=== PATIENT | male | born 1975 | race Caucasian/White ===

== ENCOUNTER 2018-02-01 13:26 | Observation (INO) | payer BC ==
--- NOTE | 2018-02-01 13:33 | EDPHY ---
H & P Time Seen by Provider: 02/01/18 13:27 Constitutional: Initial Vital Signs Temperature (C) 36.8 C 02/01/18 14:01 Heart Rate 85 02/01/18 14:01 Respiratory Rate 18 02/01/18 14:01 Blood Pressure 153/83 H 02/01/18 14:01 O2 Sat (%) 100 02/01/18 14:01 O2 Delivery Mode Room Air Allergies/Adverse Reactions: No Known Allergies Allergy (Unverified 02/01/18 14:02) Home Medications: Medication Instructions Recorded Albuterol [Proventil Inhaler HFA 1 - 2 puffs IH Q4H PRN 02/01/18 (*)] Budesonide [Pulmicort 0.5MG/2Ml 0.5 mg NASAL DAILY PRN 02/01/18 Neb] Warfarin Sodium [Coumadin 5MG (*)] 7.5 mg PO HS 02/01/18 Medical Decision Making - Diagnostics Imaging Results: Imaging Impressions Chest X-Ray 02/01/18 13:37 Impression: Prior aortic valve replacement; negative for acute cardiopulmonary abnormality.. Imaging: Discussed imaging studies w/ call center dispatcher Radiologist, I viewed and interpreted images myself ED Course/Re-evaluation: CHIEF COMPLAINT: Heart palpitations HISTORY OF PRESENT ILLNESS: The patient is an anticoagulated (Warfarin) 43 y/o male with a history of an aortic valve replacement and ventricular hypertrophy arriving via EMS complaining of chest palpitations today. On Monday, 3 days ago, he arrived in [place] from [place]. Today he went for a short run and felt okay immediately after it. Several hours after the run he developed heart palpitations associated with feeling dizzy, faint, and having numb and tingling extremities. He denies chest pain or shortness of breath at this time. When EMS arrived on scene, the patient had a respiration rate of 34. This was able to be decreased after preforming breathing exercises. While en route to the hospital the patient did not recieve fluids because he was mildly hypertensive. He is still feeling numb in his limbs. On Monday, 6 days ago the patient's INR was 2.4. Denies headache, abdominal pain, urinary or bowel complaints, paresthesias, fever. REVIEW OF SYSTEMS: A 10 point review of systems was performed and is negative with the exception of the elements mentioned in the history of present illness. PHYSICAL EXAM: HR, BP, O2 Sat, RR. Temp noted General Appearance: Alert, nervous, well hydrated, appropriate, and non-toxic appearing. Head: Atraumatic without scalp tenderness or obvious injury Eyes: Pupils equal, round, reactive to light and accommodation, EOMI, no trauma , no injection. Ears: Clear bilaterally, no perforation, normal landmarks Nose: Atraumatic, no rhinorrhea, clear. Throat: There is no erythema or exudates, no lesions, normal tonsils, mucus membranes moist. Neck: Supple, 2+ carotid upstroke, nontender, no lymphadenopathy. Respiratory: No retractions, no distress, no wheezes, and no accessory muscle use. Lungs are clear to auscultation bilaterally. Cardiovascular: Mechanical aortic valve with mechanical click. Tachycardic, no murmurs, rubs, or gallops. Bilateral carotid, radial, dorsalis pedis, and posterior tibial pulses intact. Good capillary refill all extremities. Gastrointestinal: Abdomen is soft, nontender, non-distended, no masses, no rebound, no guarding, no peritoneal signs. Musculoskeletal: Normal active ROM of all extremities, atraumatic. Neurological: Alert, appropriate, and interactive. The patient has normal DTRs and non-focal cranial nerves, motor, sensory, and cerebellar exam. Skin: No rashes, good turgor, no nodules on palpation. Past medical history: Aortic aneurysm (2002), left ventricular hypertrophy Past surgical history: Aortic valve replacement x 2 ([address] [facility]) Family history: Aortic defect Social history: Lives in [place], employed DIAGNOSTICS/PROCEDURES/CRITICAL CARE TIME: EKG: The 12 lead EKG was interpreted by myself as sinus rhythm with a rate of 87 , left atrial abnormality, nonspecific intraventricular conduction delay, left ventricular hypertrophy. See hard copy and/or "tracemaster" electronic copy for interpretation. Chest X-ray: Negative for acute findings. Echocardiogram: DIFFERENTIAL DIAGNOSIS: The differential diagnosis for the patient's chest palpitations included but was not limited to myocardial ischemia, pulmonary embolus, chest wall pain, pleural inflammation, and pulmonary infectious causes. MEDICAL DECISION MAKING: The patient is an anticoagulated (Warfarin) 43 y/o male with a history of an aortic valve replacement and ventricular hypertrophy arriving via EMS presenting with chest palpitations today. On exam the patient is tachycardic and has a mechanical aortic valve with a mechanical click. EKG, chest x-ray and labs ordered; 1L IV NS administered. 1326: I met EMS upon arrival 1333: The 12 lead EKG was interpreted by myself as sinus rhythm with a rate of 87, left atrial abnormality, nonspecific intraventricular conduction delay, left ventricular hypertrophy. 1335: Consulted with Dr. Valencia, [facility], regarding this patient. Echocardiogram ordered. 1338: Patient's EKG shows concern for inferior ST depression or ischemia. However, based on patient's history of prior valve replacements this could be normal for him. We will try to find an old EKG from [facility] for comparison. 1403: Patient's INR is 2.12 (this is subtherapeutic), he is hyperventilating and has a small anion gap with low magnesium. 2mg IV Magnesium Sulfate administered. Patient's chest x-ray is normal per radiologist. 1433: Patient's troponin is 0.00. Patient's labs do not explain his near syncope. 1438: Reassessed patient and discussed laboratory and imaging findings. The patient is feeling worse and believes his heart rate is more rapid than normal. He is also still feeling lightheaded and dizzy. The patient has received fluids and is urinating without difficulty. Due to the worsening symptoms he will need to admitted for further evaluation. 1455: Consulted with Dr. Valencia, he agrees to follow this patient during his admission. The patient has severe aortic stenosis with his aortic valve per the echocardiogram. 1515: Consulted with hospitalist service, Dr. Tunrer accepts admission of this patient. Dr. Turner would like to adjust patient's anticoagulation once he is transferred to the floor. 1518: Reassessed patient and discussed updated plan for admission. 1600: Per Dr. Miramontes, [facility] in [place], the patient had a recent EKG and Echo which revealed a normal aortic valve and ejection fracture. On 02/17/17, there was an aortic valve prosthetic mean gradient of 40 and an aortic valve prosthetic peak gradient of 72. Dr Miramontes's office phone number is [phone]. - Data Points Laboratory Results: Laboratory Results 02/01/18 13:34 02/01/18 13:34 02/01/18 02/01/18 02/01/18 14:23 13:34 13:34 WBC RBC Hgb Hct MCV MCH MCHC RDW Plt Count MPV Neut % (Auto) Lymph % (Auto) [place] % (Auto) Eos % (Auto) Baso % (Auto) Nucleat RBC Rel Count Absolute Neuts (auto) Absolute Lymphs (auto) Absolute Monos (auto) Absolute Eos (auto) Absolute Basos (auto) Absolute Nucleated RBC Immature Gran % Immature Gran # PT 23.8 SEC H SEC (12.0-15.0) INR 2.12 H (0.83-1.16) APTT 31.9 SEC SEC (23.0-38.0) Sodium 137 mEq/L mEq/L (135-145) Potassium 3.3 mEq/L mEq/L (3.3-5.0) Chloride 99 mEq/L mEq/L (97-110) Carbon Dioxide 17 mEq/l L mEq/l (22-31) Anion Gap 21 mEq/L H mEq/L (8-16) BUN 11 mg/dL mg/dL (7-23) Creatinine 1.1 mg/dL mg/dL (0.7-1.3) Estimated GFR > 60 Glucose 112 mg/dL H mg/dL (70-100) Calcium 10.0 mg/dL mg/dL (8.5-10.4) Magnesium 1.5 mg/dL L mg/dL (1.6-2.3) POC Troponin I 0.00 ng/mL ng/mL (0.00-0.08) NT-Pro-B Natriuret Pep 27 pg/mL pg/mL (0-125) 02/01/18 13:34 WBC 10.30 10^3/uL H 10^3/uL (3.80-9.50) RBC 5.93 10^6/uL 10^6/uL (4.40-6.38) Hgb 17.3 g/dL g/dL (13.7-17.5) Hct 49.1 % % (40.0-51.0) MCV 82.8 fL fL (81.5-99.8) MCH 29.2 pg pg (27.9-34.1) MCHC 35.2 g/dL g/dL (32.4-36.7) RDW 12.6 % % (11.5-15.2) Plt Count 230 10^3/uL 10^3/uL (150-400) MPV 11.2 fL fL (8.7-11.7) Neut % (Auto) 77.2 % H % (39.3-74.2) Lymph % (Auto) 15.2 % % (15.0-45.0) [place] % (Auto) 6.5 % % (4.5-13.0) Eos % (Auto) 0.3 % L % (0.6-7.6) Baso % (Auto) 0.4 % % (0.3-1.7) Nucleat RBC Rel Count 0.0 % % (0.0-0.2) Absolute Neuts (auto) 7.95 10^3/uL H 10^3/uL (1.70-6.50) Absolute Lymphs (auto) 1.57 10^3/uL 10^3/uL (1.00-3.00) Absolute Monos (auto) 0.67 10^3/uL 10^3/uL (0.30-0.80) Absolute Eos (auto) 0.03 10^3/uL 10^3/uL (0.03-0.40) Absolute Basos (auto) 0.04 10^3/uL 10^3/uL (0.02-0.10) Absolute Nucleated RBC 0.00 10^3/uL 10^3/uL (0-0.01) Immature Gran % 0.4 % % (0.0-1.1) Immature Gran # 0.04 10^3/uL 10^3/uL (0.00-0.10) PT INR APTT Sodium Potassium Chloride Carbon Dioxide Anion Gap BUN Creatinine Estimated GFR Glucose Calcium Magnesium POC Troponin I NT-Pro-B Natriuret Pep Medications Given: Discontinued Medications Sodium Chloride (Ns) 1,000 mls @ 0 mls/hr IV EDNOW ONE; Wide Open PRN Reason: Protocol Stop: 02/01/18 13:37 Last Admin: 02/01/18 14:44 Dose: Not Given Magnesium Sulfate (Magnesium Sulf 2 Gm (Premix)) 50 mls @ 50 mls/hr IV EDNOW ONE Stop: 02/01/18 15:03 Last Admin: 02/01/18 14:43 Dose: 50 mls Point of Care Test Results: Chemistry 02/01/18 14:23 POC Troponin I 0.00 ng/mL ng/mL (0.00-0.08) Departure - Departure Disposition: [facility] Inpatient Acute Clinical Impression: Palpitations, Near syncope, Dizzy, Tachycardia, Aortic valve replaced Aortic stenosis Qualifiers: Cardiac valve disease etiology: etiology unspecified Qualified Code(s): I35.0 - Nonrheumatic aortic (valve) stenosis Condition: Fair Report Scribed for: Eamon Perez Report Scribed by: Lachelle Barber Date of Report: 02/01/18 Time of Report: 13:45
--- NOTE | 2018-02-01 13:35 | CPEKG ---
Heart Rate: 87 RR Interval: 690 P-R Interval: 172 QRSD Interval: 114 QT Interval: 380 QTC Interval: 457 P [place]: 69 QRS [place]: 2 T Wave [place]: 10 EKG Severity - ABNORMAL ECG - EKG Impression: SINUS RHYTHM EKG Impression: LEFT ATRIAL ABNORMALITY EKG Impression: NONSPECIFIC INTRAVENTRICULAR CONDUCTION DELAY EKG Impression: LEFT VENTRICULAR HYPERTROPHY Electronically Signed By: Eamon Perez 01-Feb-2018 20:59:04
[2018-02-01] MEDS ORDERED: NS 1,000 ML IV ONE (13:36)
[2018-02-01 13:44] LABS: PLATELET COUNT 230 10^3/uL (150-400)
[2018-02-01 13:51] LABS: INR 2.12 (0.83-1.16); PROTIME(PATIENT) 23.8 SEC (12.0-15.0)
[2018-02-01] MEDS ORDERED: MAGNESIUM SULF 2 GM/WATER 50 ML IV ONE (14:04)
--- NOTE | 2018-02-01 14:40 | ECHO ---
[email or web address] [address] [address] Main: [phone] Fax: Transthoracic Echocardiogram Name: KIMBERLY SPANGLER MR#: [id number] Study Date: 02/01/2018 Study Time: 02:02 PM Date of : 1975 Age: 43 year(s) Height: 177.8 cm (70 in.) Weight: 75.3 kg (166 lb.) BSA: 1.93 m2 Gender: Male Examination: Echo Indication: Chest Pain Image Quality: Adequate Contrast: Requested by: Eamon Perez BP: 162 mmHg/97 mmHg Heart Rate: Rhythm: Indication: Chest Pain Procedure Staff Box Maker: Radha Vega [facility] Reading Physician: Kemal Valencia MD Requesting Provider: Conclusions: Normal size left ventricle. No LV hypertrophy. Normal global systolic LV function. EF is 64 %. No regional wall motion abnormality. The mitral valve is normal in appearance and function. Trivial to mild mitral regurgitation. The aortic valve is a mechanical prosthesis.. No prosthesis regurgitation. The prosthetic aortic valve has a mean gradient of 44 mmhg with a peak velocity of 4.1 m/s. The tricuspid valve is normal in appearance and function. Trivial tricuspid valve regurgitation. The pulmonary artery pressure is normal. Normal size aortic root measuring 3.2 cm. Normal size ascending aorta measuring 2.6 cm. Patient states known LVH and high aortic valve gradients. No previous. Measurements: Chambers Valvular Assessment AV/MV Valvular Assessment TV/PV Normal Normal Normal Name Value Range Name Value Range Name Value Range Ao Sinai (2D): 3.2 cm (1.4 cm-2.6 AV Vmax: 3.87 m/s (1 m/s-1.7 PV Vmax: 0.81 m/s (0.6 m/s-0.9 cm) m/s) m/s) IVSd (2D): 1.4 cm (0.6 cm-1.1 AV maxP mmHg ( - ) PV PGmax: 3 mmHg ( - ) cm) AV meanP mmHg ( - ) LVDd (2D): 4.3 cm (4.2 cm-5.9 LVOT Vmax: 0.86 m/s (0.7 m/s-1.1 cm) m/s) LVDs (2D): 3.0 cm (2.1 cm-4 DALLIN (Vmax): 0.9 cm2 ( - ) cm) DALLIN (VTI): 1.0 cm ( - ) Patient: KIMBERLY SPANGLER Study Date: 02/01/2018 Page 1 of 3 02:02 PM LVPWd (2D): 1.4 cm (0.6 cm-1 MV E Vmax: 0.43 m/s ( - ) cm) MV A Vmax: 0.59 m/s ( - ) LVOTd 2.3 cm 2.3 cm mm MV E/A: 0.73 ( - ) LVEF (BP): 64 % (>=55 %) MV PHT: 0.059 s ( - ) RVDd(2D): 2.9 cm (1.9 cm-3.8 MVA (PHT): 3.7 s ( - ) cmmm) Continued Measurements: Chambers Valvular Assessment AV/MV Valvular Assessment TV/PV Name Value Name Value Name Value LADs: 4.3 cm MV DecTime: 190 m/s CVP (est.): 5 mmHg LADs Lon.3 cm MV E/E' Septal: 5.90 LA Area: 15.8 cm2 MV E/E' Lateral: 4.80 LA Volume: 52 ml LA Volume Index: 26.9 ml/m2 RA Area: 16.7 cm2 Additional Vessels Name Value Ao Ascendin.6 cm Inferior Vena Cava: 1.3 cm Findings: Left Ventricle: Normal size left ventricle. No LV hypertrophy. Normal global systolic LV function. EF is 64 %. No regional wall motion abnormality. Normal diastolic LV function. Right Ventricle: Normal size right ventricle. Normal RV function. Left Atrium: The left atrium is normal in size. Right Atrium: The right atrium is normal in size. Mitral Valve: The mitral valve is normal in appearance and function. Trivial to mild mitral regurgitation. No mitral stenosis is present. Aortic Valve: The aortic valve is a mechanical prosthesis.. No prosthesis regurgitation. The prosthetic aortic valve has a mean gradient of 44 mmhg with a peak velocity of 4.1 m/s. Tricuspid Valve: The tricuspid valve is normal in appearance and function. Trivial tricuspid valve regurgitation. The pulmonary artery pressure is normal. Pulmonic Valve: The pulmonic valve is normal in appearance and function. There is no pulmonic regurgitation seen. Aorta: The aorta is normal. Normal size aortic root measuring 3.2 cm. Normal size ascending aorta measuring 2.6 cm. IVC: The IVC is normal sized. Pericardium: No pericardial effusion. No pleural effusion. Exam Comments: Patient states known LVH and high aortic valve gradients. (No Signature Object) Patient: KIMBERLY SPANGLER Study Date: 02/01/2018 Page 2 of 3 02:02 PM Patient: KIMBERLY SPANGLER Study Date: 02/01/2018 Page 3 of 3 02:02 PM [id number]
[2018-02-01] MEDS ORDERED: ONDANSETRON 4 MG/2 ML VIAL IVP PRN (17:43)
[2018-02-01] MEDS ORDERED: ACETAMINOPHEN 325 MG TAB PO PRN (17:43)
[2018-02-01] MEDS ORDERED: ONDANSETRON DISINTEGRATING 4 MG TAB PO PRN (17:43)
[2018-02-01] MEDS ORDERED: PROTOCOL POTASSIUM 1 DOSE MISC PRN (17:45)
[2018-02-01] MEDS ORDERED: PROTOCOL MAGNESIUM 1 DOSE IV PRN (17:45)
[2018-02-01] MEDS ORDERED: BUDESONIDE 0.5 MG/2 ML AMPUL.NEB IH PRN (17:46)
[2018-02-01] MEDS ORDERED: ALBUTEROL 60 PUFFS/8 GM MDI IH PRN (17:46)
--- NOTE | 2018-02-01 17:50 | PDGENHP ---
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 He has a hx of ARV and is on chronic AC. He experience palpitations and tachycardia and dizziness. He was seen in the ER and an EKG was concerning for ST depression in the inferior leads. An ECHO was done and this is c/w of the mechanical valve. He is being admitted for further w/u and mgmt. Currently he feels like "everything is heavy" but denies pain localization to the chest. He is not SOB. He does not have any leg swelling. Dr. Valencia will be consulting. Past medical history: Aortic aneurysm (2002), left ventricular hypertrophy Past surgical history: Aortic valve replacement x 2 (2004 at [facility]) Family history: Aortic defect Social history: Lives in [place], employed, runs 15 miles weekly History Information - Allergies/Home Medication List Allergies/Adverse Reactions: No Known Allergies Allergy (Unverified 02/01/18 14:02) Home Medications: Albuterol [Proventil Inhaler HFA (*)] 1 - 2 puffs IH Q4H PRN 02/01/18 [Last Taken Unknown] Budesonide [Pulmicort 0.5MG/2Ml Neb] 0.5 mg NASAL DAILY PRN 02/01/18 [Last Taken Unknown] Warfarin Sodium [Coumadin 5MG (*)] 7.5 mg PO HS 02/01/18 [Last Taken 01/31/18] I have personally reviewed and updated: medical history, social history - Social History Smoking Status: Never smoked Review of Systems Review of Systems: ROS: 10pt was reviewed & negative except for what was stated in HPI & below Physical Exam Physical Exam: Temp Pulse Resp BP Pulse Ox 37.3 C 86 14 126/86 H 97 02/01/18 16:55 02/01/18 16:55 02/01/18 16:55 02/01/18 16:55 02/01/18 16:55 Constitutional: no apparent distress, not in pain Eyes: PERRL, EOMI Ears, Nose, Mouth, Throat: moist mucous membranes, hearing normal Cardiovascular: regular rate and rhythym, systolic murmur, No edema Respiratory: no respiratory distress, no rales or rhonchi, clear to auscultation Gastrointestinal: normoactive bowel sounds, soft, non-tender abdomen Skin: warm, normal color Neurologic: AAOx3 Psychiatric: interacting appropriately, not anxious, not encephalopathic Lab Data & Imaging Review 02/01/18 13:34 02/01/18 13:34 WBC 10.30 10^3/uL (3.80-9.50) H 02/01/18 13:34 RBC 5.93 10^6/uL (4.40-6.38) 02/01/18 13:34 Hgb 17.3 g/dL (13.7-17.5) 02/01/18 13:34 Hct 49.1 % (40.0-51.0) 02/01/18 13:34 MCV 82.8 fL (81.5-99.8) 02/01/18 13:34 MCH 29.2 pg (27.9-34.1) 02/01/18 13:34 MCHC 35.2 g/dL (32.4-36.7) 02/01/18 13:34 RDW 12.6 % (11.5-15.2) 02/01/18 13:34 Plt Count 230 10^3/uL (150-400) 02/01/18 13:34 MPV 11.2 fL (8.7-11.7) 02/01/18 13:34 Neut % (Auto) 77.2 % (39.3-74.2) H 02/01/18 13:34 Lymph % (Auto) 15.2 % (15.0-45.0) 02/01/18 13:34 [place] % (Auto) 6.5 % (4.5-13.0) 02/01/18 13:34 Eos % (Auto) 0.3 % (0.6-7.6) L 02/01/18 13:34 Baso % (Auto) 0.4 % (0.3-1.7) 02/01/18 13:34 Nucleat RBC Rel Count 0.0 % (0.0-0.2) 02/01/18 13:34 Absolute Neuts (auto) 7.95 10^3/uL (1.70-6.50) H 02/01/18 13:34 Absolute Lymphs (auto) 1.57 10^3/uL (1.00-3.00) 02/01/18 13:34 Absolute Monos (auto) 0.67 10^3/uL (0.30-0.80) 02/01/18 13:34 Absolute Eos (auto) 0.03 10^3/uL (0.03-0.40) 02/01/18 13:34 Absolute Basos (auto) 0.04 10^3/uL (0.02-0.10) 02/01/18 13:34 Absolute Nucleated RBC 0.00 10^3/uL (0-0.01) 02/01/18 13:34 Immature Gran % 0.4 % (0.0-1.1) 02/01/18 13:34 Immature Gran # 0.04 10^3/uL (0.00-0.10) 02/01/18 13:34 PT 23.8 SEC (12.0-15.0) H 02/01/18 13:34 INR 2.12 (0.83-1.16) H 02/01/18 13:34 APTT 31.9 SEC (23.0-38.0) 02/01/18 13:34 Sodium 137 mEq/L (135-145) 02/01/18 13:34 Potassium 3.3 mEq/L (3.3-5.0) 02/01/18 13:34 Chloride 99 mEq/L (97-110) 02/01/18 13:34 Carbon Dioxide 17 mEq/l (22-31) L 02/01/18 13:34 Anion Gap 21 mEq/L (8-16) H 02/01/18 13:34 BUN 11 mg/dL (7-23) 02/01/18 13:34 Creatinine 1.1 mg/dL (0.7-1.3) 02/01/18 13:34 Estimated GFR > 60 02/01/18 13:34 Glucose 112 mg/dL (70-100) H 02/01/18 13:34 Calcium 10.0 mg/dL (8.5-10.4) 02/01/18 13:34 Magnesium 1.5 mg/dL (1.6-2.3) L 02/01/18 13:34 POC Troponin I 0.00 ng/mL (0.00-0.08) 06/21/18 14:23 NT-Pro-B Natriuret Pep 27 pg/mL (0-125) 02/01/18 13:34 Assessment & Plan Assessment: #Aortic stenosis (Acute) #Hx of Aortic valve replaced (Acute) #Near syncope (Acute) #Palpitations (Acute) #Tachycardia (Acute) #Abnormal EKG, concerning for inferior ischemia, normal troponin #chronic AC #AG Metabolic Acidosis #Hypomagnesemia Plan: PCU Tele Cards, Dr. Valencia to eval He reports his INR target is 2.5 with an appropriate range being 2-3 despite him having a mechanical valve. I discussed with his lokie engineer Dr. Miramontes who agrees. No need for further AC unless recommended by our Cards team NPO at midnight in case of procedure repeat trop Replace Mg Repeat labs in a.m., he is s/p IVF in the ER
[2018-02-01] MEDS ORDERED: WARFARIN SODIUM 5 MG TAB PO SCH (21:00)
[2018-02-01] MEDS ORDERED: POTASSIUM CL 10 MEQ TAB PO ONE (21:48)
[2018-02-02 04:19] LABS: PLATELET COUNT 193 10^3/uL (150-400)
[2018-02-02 04:36] LABS: INR 1.97 (0.83-1.16); PROTIME(PATIENT) 22.5 SEC (12.0-15.0)
[2018-02-02 07:27] VITALS: BP 136/80
--- NOTE | 2018-02-02 11:39 | GCON ---
[f rep st] CONSULTATION CARDIOLOGY CONSULTATION Kenneth is admitted to the hospital after feeling lightheaded at home. Kenneth is a gentleman who has had a long complex cardiovascular history. 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 He has known aortic root and aortic valve disease and had a surgical aortic repair in 2002, and a Jaime nt Ronn mechanical valve replacement was done as a redo in June 2005. He runs 15 miles a week, h as done well with that. He has lost a significant amount of weight and is keeping his weight off. 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 He when he came to town on Monday, he went running on Monday and was fine. I believe he r an Monday, and then, he ran on Monday. When he ran on Monday, he came back in, he felt lighth eaded and woozy. He did not report shortness of breath, did not have chest pain, and he just felt aw ful enough that he wanted to come to the hospital and be evaluated, so he did that. He developed a little bit of chest tightness after he got here. He did not have any chest tightness or pain when he was running, and he has not had typical anginal t ype symptoms consisting of discomfort or pressure or tightness when he exerts himself that goes away with rest or when he is stressed that goes away with rest. This discomfort he has is in the center o f the chest. It did not last very long. There was no radiation. He has no jaw pain or arm pain. H e was not diaphoretic. He had no nausea, vomiting, palpitations. He maintains this running schedule and does it well and has no problem with that and did not have any symptoms while he was running. The patient does not have orthopnea, PND or dyspnea on exertion. He does not have a history of perip heral edema or weight gain. He is not lightheaded or dizzy. He has not been having tachycardias or palpitations. He has not had hemoptysis. He has no history of DVT. He has not had trauma to the head, neck or chest. His cardiac history includes an aortic aneurysm repair in 2002 and aortic valve replacement mechanica l in 2004 at [facility]. His family has aortic disease that runs in the family. He has been told that his aortic valve is too small, and he a gradient last year in 2017. In February, the mean gradient was 40, and on our echocardiographic study here, it was 44. He has no history of coronary artery disease. He has no history of hypertension, hyperlipidemia, bernard betes mellitus, hyperuricemia, obesity, smoking, known coronary artery disease. He has no family history of premature coronary disease. past medical history, review of systems negative for 10 points, except as noted above, and he does parsons ve a history of asthma. He does take albuterol. FAMILY HISTORY: He has a family history of aortic disease. He has no family history of premature co ronary artery disease. SOCIAL HISTORY: He lives in [place]. He is an active gentleman, exercising hard, watching his weight . He works for the [email or web address] as a . 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 He does not smoke. He does not drink significant amounts of alcohol. MEDICATIONS: 1. Albuterol. 2. Pulmicort. 3. Coumadin. ALLERGIES: None. PHYSICAL EXAMINATION: VITAL SIGNS: His blood pressure is 120/77, heart rate 67, respiratory rate 12 . GENERAL: He is resting comfortably in a hospital chair. HEENT: Pupils equal and reactive. Muco us membranes and mouth moist. NECK: Supple. CARDIOVASCULAR: He had prosthetic heart sounds. Soft systolic murmur noted at the left sternal border. No diastolic murmur. No S3, S4 or rubs. He does have a harsh 2/6 murmur at the second right intercostal space in the neck with a slight diminution i n carotid upstrokes. PULMONARY: Exam reveals rhonchi bilaterally. No rales, wheezing or dullness. CVA: No tenderness. ABDOMEN: Soft, nontender without masses. EXTREMITIES: No edema, inflammatio n or ulceration. No swelling of his calves. No pain in his calves. Pulses are full and equal. JOANNA ROLOGIC: Cranial nerves II-XII are grossly normal. Motor and sensory appear to be intact. PSYCH: No obvious anxiety or depression. SKIN: Age-related changes. DATA REVIEWED: Laboratory evaluation is white count 10.3, hematocrit 49, platelets 230. Sodium 137, potassium of 3.3, 99, CO2 17, BUN 11, creatinine 1.1. BNP was 27. Troponins x2 were neg ative. Chest x-ray shows prior aortic valve replacement. Negative for acute cardiopulmonary abnormality. Electrocardiogram shows sinus rhythm, IVCD, LVH, nonspecific ST-T changes. he has left ve ntricular hypertrophy with nonspecific ST-T changes. He has ST-segment depression, and then, diffuse nonspecific ST-T changes. We want to go to the echocardiogram next, and I am pulling up the echocardiogram now, and it shows no rmal LV systolic function with an ejection fraction of 64%, trivial to mild mitral regurgitation, mec hanical prosthesis in the aortic position. No regurgitation. Mean gradient of 44. Peak velocity of 4.1. Tricuspid shows trivial regurgitation. Normal size aortic root measuring 3.2, normal size asc ending aorta measuring 2.6. ASSESSMENT AND PLAN: 1. Status post aortic valve replacement. 2. Status post aortic root repair. a. The patient has tolerated these well. He has a valve that he tells me he has been told is too sm all for him and is being watch at [facility]. b. He has been known to have left ventricular hypertrophy. c. He has no heart failure now. He has nothing that sounds like an acute coronary syndrome. d. He did have an episode where he was very lightheaded and dizzy, and that is abnormal for him, at the conclusion of a run. e. He did not have any reported arrhythmia symptoms. The cause of this is not clearly known. His t roponins have been negative x2, his EKG is abnormal, and we will try to get a copy of his EKG from [facility]. We will order that now to see how today's EKG compares with the other one. At this time , we will get a D-dimer because he obviously is a candidate for pulmonary embolic disease and that co uld explain exactly what happened to him yesterday. If the D-dimer is negative, we will leave it the re. If it is not, we will pursue further evaluation. f. His symptoms have totally resolved. I have talked to him about doing a stress test here before mark farah leaves for [place], but he wants to follow up with his own doctors at [facility] . He knows that his troponins have been negative, and his coronaries have been evaluated in the past and been negative. g. He will be in touch with them and see them early next week. h. If he has any further deterioration, he is going to seek health care right away. 3. Naitt-Bggxwnkbb-Zbpjx. a. He had an attempted ablation in 1999 that was unsuccessful, but he has had a resolution of his pr e-excitation. 4. Family history of aortic disease. All his questions have been answered at this point in time. We will check a D-dimer. We will get a record from [facility] for his previous electrocardiograms. Thank you very much. /[id number]/MODL
[2018-02-02] MEDS ORDERED: MECLIZINE HCL 25 MG TAB PO ONE (12:49)
--- NOTE | 2018-02-02 18:14 | PDDCSUM ---
Discharge Summary Discharge Summary: DISCHARGE SUMMARY FOLLOW-UP ITEMS: Follow up with check out cashier upon returning home, consider outpatient stress test Repeat PT and INR on 02/05/2018 DATE OF ADMISSION: 02/01/2018 DATE OF DISCHARGE: 02/02/2018 DISCHARGE DIAGNOSES: 1. Acute near syncope 2. Severe aortic stenosis status post mechanical aortic valve replacement 3. Anion gap metabolic acidosis CONSULTATIONS: Cardiology PROCEDURES / IMAGING: Echocardiogram demonstrating ejection fraction 64%, no focal wall motion abnormalities, aortic valve gradient of 44 comma chest x-ray clear CHIEF COMPLAINT: Acute near syncope SUBJECTIVE: Patient is feeling well at time of discharge, he continues to experience some lightheadedness upon movement PHYSICAL EXAM ON DISCHARGE: Systolic blood pressure 120-130, heart rate 70, afebrile overnight, net negative overnight, 3/6 systolic murmur at the right sternal border, closing snap, radiating superiorly, no carotid bruits LABS ON DISCHARGE: D-dimer negative, INR 2, liver panel unremarkable, creatinine 1.2, serum bicarbonate 27, white blood cell count 7400 HOSPITAL COURSE BY PROBLEM: The patient presented with acute near syncope most likely secondary to a combination of exercise induced hypovolemia with an underlying severe aortic stenosis in the setting of mechanical aortic valve replacement with a high, fixed gradient of 44. The patient was exercising during his onset of symptoms and he had an anion gap acute metabolic acidosis, signifying that he was most likely somewhat volume deplete and I suspect that he was unable to accommodate for his reduction in pre-load due to his valve gradient, resulting in near syncopal symptoms. The patient was seen in consultation by Cardiology, and they concurred, recommending that he follow up with his primary check out cashier upon arrival home. At the present time, the patient does not appear to have any impending issues. We recommended that he increase his dosing of Coumadin today in order to accomplish a goal INR of greater than 2.5, and repeat his PT and INR next week. Given the patient continued to experience some positional symptoms of subjective dizziness after he was volume repleted, we did raise the possibility of mild inner ear irritation resulting in benign positional paroxysmal vertigo, and I provided him with a limited supply of meclizine as needed. DISCHARGE MEDICATIONS: Please see official discharge medication reconciliation sheet in chart , meclizine 12.5-25 mg as needed, taken additional 7.5 mg of Coumadin tonight, then resume home dosing. DISCHARGE INSTRUCTIONS: Please follow up with primary check out cashier upon returning home, repeat PT and INR on 02/05.
[2018-02-02] MEDS ORDERED: WARFARIN SODIUM 7.5 MG TAB PO SCH (21:00)
== END 2018-02-02 13:28 | disposition home or self-care (01) ==
LOC: F2W 16:25
PROVIDERS: ADMIT Family Medicine; ATTEND Family Medicine
DX: R55 Syncope and collapse (principal); R94.39 Abnormal result of other cardiovascular function study; E87.2 Acidosis; E86.1 Hypovolemia; Z95.2 Presence of prosthetic heart valve; Z79.01 Long term (current) use of anticoagulants
CPT/HCPCS: 71046; 93005; 93306; G0378; 84484-PO; 96365; J3475